=== PATIENT | female | born 1970 | race Caucasian/White ===

== ENCOUNTER 2016-09-10 07:39 | Emergency (ER) | payer OTHER ==
--- NOTE | 2016-09-10 08:40 | ER PHYSICIAN DOCUMENTATION ---
Physician Documentation [facility] Name:Imani Ha Age:45 yrs Sex:Female :1970 Arrival Date:09/10/2016 Time:07:39 Bed1 Private MD: Ariel Wen Disposition: 09/10/16 08:19 Discharged to Home/Self Care. Impression: Toe Fracture. - Condition is Good. - Discharge Instructions: TOE FRACTURE Closed - FRACTURE, Toe [Closed]. - Prescriptions for Hydrocodone- Acetaminophen 5-325 mg Oral Tablet - take 1 tablet by ORAL route every 6 hours As needed; 20 tablet. - Medical Reconciliation form form. - Follow up: Private Physician; When: 1 week; Reason: Recheck today's complaints. - Problem is new. - Symptoms have improved. HPI: 09/10 08:16 This 45 yrs old Female presents to ER via Private Vehicle with complaints of sc Toe Injury. 08:16 The patient presents with an injury. The complaints affect the right foot. Context: The sc problem was sustained at home, resulted from stubbed toe on furniture. Onset: The symptom(s)/episode began/occurred this morning. Modifying factors: The symptoms are alleviated by nothing. Historical: - Allergies: Valium; - Home Meds: 1. CONTROL 2. ANTIDEPRESSANT - PMHx: DEPRESSION; - PSHx: None; - Tetanus: < 10 years. - Ebola Screening: : Patient denies travel to an Ebola-affected area in the 21 days before illness onset. No symptoms or risks identified at this time. . - Immunization history: Flu Vaccine < 1 year. - Social history: Smoking status: Patient states was never smoker of tobacco. ROS: 08:17 MS/extremity: Positive for injury or acute deformity. sc 08:17 Constitutional: Negative for fever, chills, and weight loss. sc ENT: Negative for injury, pain, and discharge. Neck: Negative for injury, pain, and swelling. Skin: Negative for injury, rash, and discoloration. 08:17 Neuro: Negative for headache, weakness, numbness, tingling, and seizure. Exam: 08:18 Constitutional: The patient appears in no acute distress, alert, awake. sc 08:18 Musculoskeletal/extremity: Extremities: grossly normal except: pain, ROM: intact in all extremities, Circulation is intact in all extremities. Sensation intact. 08:18 Skin: Exam negative for acute changes. 08:18 Neuro: Exam negative for acute changes. Vital Signs: 07:54 BP 123 / 64; Pulse 71; Resp 16; Temp 98.3; Pulse Ox 94% on R/A; Weight 90.72 kg; Height 5 ft. 12 in. (182.88 cm); Pain 5/10; 08:38 Pain 3/10; lc 07:54 Body Mass Index 27.12 (90.72 kg, 182.88 cm) MDM: 07:48 Patient medically screened. sc 08:18 Differential diagnosis: fracture. Data reviewed: vital signs, nurses notes, radiologic sc studies, and as a result, I will discharge patient. Counseling: I had a detailed discussion with the patient and/or guardian regarding: the historical points, exam findings, and any diagnostic results supporting the discharge/admit diagnosis, the need for outpatient follow up, with the patient's primary care provider, to return to the emergency department if symptoms worsen or persist or if there are any questions or concerns that arise at home. 09/10 09:04 Order name: FOOT;[address] [place] [id number] EDMS Dispensed Medications: No medications were administered Signatures: Roseanne Luong RN RN Ariel Richter MD MD de
--- NOTE | 2016-09-10 08:40 | ER NURSING DOCUMENTATION ---
Nurse's Notes Name:Imani Ha Age:45 yrs Sex:Female :1970 Arrival Date:09/10/2016 Time:07:39 Bed1 Private MD: Diagnosis:Toe Fracture Presentation: 09/10 07:45 Acuity: JUANIS 4 07:49 Presenting complaint: Patient states: HIT RIGHT FOOT ON A DOOR THIS AM AND INJURED 4TH lc TOE. DENIES OTHER INJURY. SKIN INTACT, NO DEFORMITY. Transition of care: Home. Notified ED Physician of patient's arrival and CC. 07:49 Method Of Arrival: Private Vehicle Triage Assessment: 07:53 General: Appears in no apparent distress, Behavior is cooperative. Pain: Complains of lc pain in right fourth toe Pain At worst was 5 out of 10 on a pain scale. Quality of pain is described as dull, throbbing, Pain began 1 hour ago. Neuro: Level of Consciousness is awake, alert, Oriented to person, place, time, event. Musculoskeletal: Capillary refill < 3 seconds Range of motion intact in TOE. Injury Description: Crush injury. Historical: - Allergies: Valium; - Home Meds: 1. CONTROL 2. ANTIDEPRESSANT - PMHx: DEPRESSION; - PSHx: None; - Tetanus: < 10 years. - Ebola Screening: : Patient denies travel to an Ebola-affected area in the 21 days before illness onset. No symptoms or risks identified at this time. . - Immunization history: Flu Vaccine < 1 year. - Social history: Smoking status: Patient states was never smoker of tobacco. Screenin:55 Infectious Disease Risk None. Abuse screen: Denies threats or abuse. Denies injuries lc from another. Nutritional screening: No deficits noted. Assessment: 07:55 See Triage Assessment done by same RN. Vital Signs: 07:54 BP 123 / 64; Pulse 71; Resp 16; Temp 98.3; Pulse Ox 94% on R/A; Weight 90.72 kg; Height 5 ft. 12 in. (182.88 cm); Pain 5/10; 08:38 Pain 3/10; lc 07:54 Body Mass Index 27.12 (90.72 kg, 182.88 cm) ED Course: 07:41 Patient arrived in ED. arc 07:45 Roseanne Luong, RN is Primary Nurse. 07:45 Triage completed. 07:48 Ariel Whitman MD is Attending Physician. me 07:55 Valuables Remains with patient Patient has correct armband on for positive lc identification. Bed in low position. Call light in reach. Ice pack to injury. 08:13 Port Xray Completed. pm1 08:38 Joes tape toes on right. lc Administered Medications: No medications were administered Outcome: 08:19 Discharge ordered by . me 08:38 Discharged to home via wheelchair, with family. 08:38 Condition: stable 08:38 Discharge Assessment: Patient awake, alert and oriented x 3. No cognitive and/or functional deficits noted. Patient verbalized understanding of disposition instructions. 08:38 Discharge instructions given to patient, Instructed on discharge instructions, follow up and referral plans. medication usage, [facility] Demonstrated understanding of instructions, medications, CD GIVEN Prescriptions given X 1. 08:39 Patient left the ED. 07 10:36 Discharge F/U Call: Unable to reach: no answer lp Signatures: Roseanne Luong RN RN Beverly Agarwal RN RN Ariel Leger MD MD me Rodrigo Wagoner pm1 Barbara Whitman, Reg Reg arc
--- NOTE | 2016-09-10 09:02 | RADIOLOGY REPORT ---
History: Right foot pain following injury. Findings: 3 radiographs of the right foot show a fracture of the midshaft of the proximal phalanx of the fourth toe. The medial margin of the principal distal fracture fragment is about 2 mm laterally d isplaced. Alignment is otherwise anatomic. Bone mineral density is normal. Impression: Acute right fourth toe proximal phalanx fracture. Final Electronic Signature: This report was electronically signed by Shaquille Kramer MD on 09/10/2016 9:00 AM. [email or web address] /
== END 2016-09-10 08:40 | disposition home or self-care (01) ==
LOC: MERGE 07:39 → ER 07:39
DX: S92.511A Displaced fracture of proximal phalanx of right lesser toe(s), initial encounter for closed fracture (principal); W18.49XA Other slipping, tripping and stumbling without falling, initial encounter; Y92.019 Unspecified place in single-family (private) house as the place of occurrence of the external cause; Y93.01 Activity, walking, marching and hiking
CPT/HCPCS: 99283